=== PATIENT | female | born 1990 ===

== ENCOUNTER 2024-01-11 06:15 | Day surgery (SDC) | payer OTHER, SELFPAY ==
[2023-12-22 06:36] VITALS: BMI 29.2
[2023-12-22 09:02] LABS: % Basophils 0.5 % (0-2); % Immature Granulocytes 0.4 % (0-0.5); % Lymphocytes 37.1 % (20.5-51.1); % Monocytes 8.7 % (1.7-9.3); % Neutrophils 49.3 % (42.2-75.2); Absolute Basophils 0.1 10^3/uL (0-0.2); Absolute Eosinophils 0.4 10^3/uL (0-0.7); Absolute Lymphocytes 3.7 10^3/uL (1.2-3.4); Absolute Monocytes 0.9 10^3/uL (0.1-0.6); Hemoglobin 12.6 g/dL (12.0-16.0); Mean Corp Hgb Conc. 33.2 g/dL (33.0-37.0); Mean Corpuscular Hgb 29.4 pg (27.0-31.0); Mean Corpuscular Volume 88.8 fL (81.0-99.0); Mean Platelet Volume 10.6 fL (7.4-10.4); Nucleated Red Blood Cells % 0 %; Platelet Count 381 10^3/uL (130-400); Red Blood Cell Count 4.28 10^6/uL (4.20-5.40); Red Cell Dist. Width 12.4 % (11.5-14.5); White Blood Cell Count 10.1 10^3/uL (4.8-10.8)
[2023-12-22 09:14] LABS: HCG, Urine Qualitative Screen Negative
[2024-01-11] VITALS (8 sets, daily range): BP systolic 109–135; BP diastolic 79–90; BMI 29.2
[2024-01-11] MEDS: NORMOSOL-R/PLASMALYTE-A 1000 IV (06:30)
[2024-01-11] MEDS: TYLENOL 1000 MG PO (06:31)
== END 2024-01-11 10:25 | disposition home or self-care (01) ==
LOC: SDS 06:15
PROVIDERS: ATTENDING PHYSICIAN Otolaryngology; FAMILY PHYSICIAN Physician Assistant
DX: J34.2 Deviated nasal septum (principal); J34.3 Hypertrophy of nasal turbinates
CPT/HCPCS: 30520; 30140; 81025; 85025